=== PATIENT | male | born 1975 | race African-American/Black ===

== ENCOUNTER 2025-02-20 07:23 | Observation (INO) ==
[2025-02-20] MEDS: NOZIN NASAL SANITIZER TP ONE (07:37)
[2025-02-20] MEDS: LR 1,000 ML IV 1,000 ML IV ONE (07:37)
[2025-02-20] MEDS: DIPRIVAN VIAL 0 ML ONE (08:01)
[2025-02-20] MEDS: DIPRIVAN VIAL 20 ML ONE (08:07)
[2025-02-20] MEDS: FENTANYL VIAL INJ 100 mcg ONE (08:12)
[2025-02-20] MEDS: VERSED ONE (08:12)
[2025-02-20] MEDS: PEPCID 20 MG VIAL ONE (08:29)
[2025-02-20] MEDS: ZOFRAN INJ 4 MG VIAL IVP PRN ×2 (08:45→11:46)
[2025-02-20] MEDS: PEPCID 20 MG VIAL IVP PRN (08:45)
[2025-02-20] MEDS: VERSED IVP PRN (08:45)
[2025-02-20] MEDS: NS 100 ML IV 100 ML ONE (08:46)
[2025-02-20] MEDS: ANCEF VIAL 1 GRAM ONE (08:46)
[2025-02-20] MEDS: LR 1,000 ML IV 800 ML IV PRN (08:52)
[2025-02-20] MEDS ORDERED: XYLOCAINE 2 % (PLAIN) ONE (08:52)
[2025-02-20] MEDS ORDERED: PRECEDEX INJ VIAL ONE (08:52)
[2025-02-20] MEDS ORDERED: KETAMINE HCL ONE (08:52)
[2025-02-20] MEDS: FENTANYL VIAL INJ 100 mcg IVP PRN (08:58)
[2025-02-20] MEDS ORDERED: XYLOCAINE 2 % (PLAIN) PRN (08:58)
[2025-02-20] MEDS: KETAMINE HCL IV PRN (08:58)
[2025-02-20] MEDS: DIPRIVAN VIAL 200 ML IVP PRN (08:58)
[2025-02-20] MEDS: ANCEF VIAL 1 GRAM IV PRN (09:05)
[2025-02-20] MEDS: OFIRMEV IV 1000 MG VIAL 1,000 MG/100 ML VIAL IV PRN (09:05)
[2025-02-20] MEDS: DECADRON INJ IVP PRN (09:09)
[2025-02-20] MEDS: DECADRON INJ ONE (09:09)
[2025-02-20] MEDS: EPHEDRINE SULFATE INJ ONE (09:14)
[2025-02-20] MEDS: EPHEDRINE SULFATE INJ IVP PRN (09:15)
[2025-02-20] MEDS: MARCAINE 0.5% ONE (09:16)
[2025-02-20] MEDS: BACTROBAN TOPICAL OINT ONE (09:16)
[2025-02-20] MEDS: POLYMYXIN B SULFATE ONE (09:16)
[2025-02-20] MEDS: BRIDION ONE (09:40)
[2025-02-20] MEDS ORDERED: REGLAN INJ 10 MG VIAL IVP PRN (09:42)
[2025-02-20] MEDS ORDERED: BARHEMSYS INJ IVP PRN (09:42)
[2025-02-20] MEDS ORDERED: DILAUDID INJ IVP PRN (09:42)
[2025-02-20] MEDS ORDERED: BENADRYL INJ 50 MG VIAL IVP PRN (09:42)
[2025-02-20] MEDS ORDERED: ZOFRAN INJ 4 MG VIAL IVP PRN (09:42)
[2025-02-20] MEDS: ZEMURON 100 MG VIAL IVP PRN (09:48)
[2025-02-20] MEDS: TORADOL 30 MG VIAL ONE (09:59)
[2025-02-20] MEDS: TORADOL 30 MG VIAL IVP PRN (10:00)
[2025-02-20] MEDS: PRECEDEX INJ VIAL IVP PRN (10:04)
[2025-02-20] MEDS: BRIDION IVP PRN (10:08)
[2025-02-20] MEDS: D5 1/2 NS 1,000 ML 1,000 ML IV ONE (10:21)
[2025-02-20 11:35] VITALS: BMI 30.4
[2025-02-20] MEDS: D5 1/2 NS 1,000 ML 1,000 ML IV SCH (11:36)
[2025-02-20] MEDS: MORPHINE SULFATE INJ 4 MG IVP PRN (11:45)
[2025-02-20] MEDS: ANCEF VIAL 1 GRAM 1 G in NS 100 ML IV 100 ML IV SCH (13:40)
[2025-02-20] MEDS ORDERED: ANCEF VIAL 1 GRAM IVP SCH (14:00)
[2025-02-21 06:27] LABS: BASOPHILS % (AUTO) 0.2 % (0.2-1.0); EOSINOPHILS % (AUTO) 0.3 % (0.9-2.9); HEMATOCRIT 38.2 % (42.0-54.0); HEMOGLOBIN 12.6 g/dL (13.5-18.0); LYMPHOCYTES # (AUTO) 1.6 X10^3/uL (1.3-2.9); LYMPHOCYTES % (AUTO) 13.2 % (21.0-51.0); MEAN CORPUSCULAR HGB CONC 32.9 g/dL (33.0-35.0); MEAN PLATELET VOLUME 7.9 fL (7.4-11.0); MONOCYTES % (AUTO) 7.7 % (0.0-13.0); NEUTROPHILS # (AUTO) 9.6 x10^3/uL (2.2-4.8); NEUTROPHILS % (AUTO) 78.6 % (42.0-75.0); PLATELET COUNT 248 X10^3/uL (150.0-450.0); RED BLOOD COUNT 4.83 X10^6/uL (4.7-6.0); RED CELL DISTRIBUTION WIDTH 13.6 % (11.6-16.5); WHITE BLOOD COUNT 12.3 X10^3/uL (3.6-10.0)
[2025-02-21 06:38] LABS: ALANINE AMINOTRANSFERASE 44 Units/L (12-78); ALKALINE PHOSPHATASE 90 Units/L (46-116); ASPARTATE AMINO TRANSFERASE 22 Units/L (15-37); BLOOD UREA NITROGEN 9 mg/dL (7-18); CALCIUM 8.5 mg/dL (8.5-10.1); CARBON DIOXIDE 26.6 mmol/L (21-32); CHLORIDE 104 mmol/L (98-107); COR NA(FOR HYPERGLY) 141 mmol/L (136-145); CREATININE 1.04 mg/dL (0.70-1.30); GLUCOSE 123 mg/dL (65-99); POTASSIUM 3.9 mmol/L (3.5-5.1); SODIUM 140 mmol/L (136-145); TOTAL PROTEIN 8.1 g/dL (6.4-8.2); eGFR NON BLACK RACES > 60 (>60)
[2025-02-21 08:05] VITALS: BP 136/87; TEMP 98.2
[2025-02-21 08:49] VITALS: PULSE 64; O2SAT 93
[2025-02-21] MEDS: TORADOL 30 MG VIAL IVP PRN (09:19)
[2025-02-21 10:03] VITALS: RESP 20
== END 2025-02-21 11:15 | disposition home or self-care (01) ==
LOC: SURG1 07:23 → MED/SURG 07:23
PROVIDERS: ADMIT Surgery; ATTEND Surgery
DX: E11.65 Type 2 diabetes mellitus with hyperglycemia; Z68.32 Body mass index [BMI] 32.0-32.9, adult; K42.0 Umbilical hernia with obstruction, without gangrene; G89.18 Other acute postprocedural pain; E66.89 Other obesity not elsewhere classified